=== PATIENT | female | born 1975 | race Caucasian/White ===

== ENCOUNTER 2020-03-15 08:09 | Emergency (ER) | payer OTHER ==
[2020-03-15] MEDS ORDERED: Acetaminophen 500 MG Tab PO ONE (08:41)
[2020-03-15] MEDS ORDERED: Bupivacaine 0.5% 30 ML SDV INFILT ONE (08:41)
[2020-03-15] MEDS ORDERED: Ibuprofen 400 MG Tab PO ONE (08:41)
[2020-03-15] MEDS ORDERED: Bupivacaine 0.5% 10 ML SDV INJECT ONE (08:42)
[2020-03-15] MEDS ORDERED: Bupivacaine 0.5% 10 ML SDV ONE (08:45)
--- NOTE | 2020-03-15 08:52 | EDM.PDOC ---
ED HPI GENERAL MEDICAL PROBLEM - General Chief Complaint: Laceration Stated Complaint: CUT LEFT HAND WITH KNIFE Time Seen by Provider: 03/15/20 08:11 Source of Information: Reports: Patient History Limitations: Reports: No Limitations - History of Present Illness INITIAL COMMENTS - FREE TEXT/NARRATIVE: 44-year-old female with no past medical history presenting with a finger lace ration. Proximally 30 minutes ago, the patient was using a kitchen knife when she sustained a laceration to the left fifth finger. Denies any other injuries. There was no rust on the knife, she cleaned it last night. Tetanus immunization up-to-date as of 2 years ago. Denies any other injuries or complaints including numbness to the affected digit. Past medical history: Reviewed, no additional pertinent history. Surgical history: Reviewed in system, no additional pertinent history. Social history: Reviewed in system, no additional pertinent history. Family history: Reviewed in system, no additional pertinent history. PHYSICAL EXAM Vital signs reviewed. Nursing notes reviewed. Constitutional: Awake, alert, non-distressed. Head: Normocephalic, atraumatic. Eyes: EOMI, conjunctiva normal, no discharge, no scleral icterus. Ears, Nose, Throat: External ears and nose normal, moist oral mucosa. Pulmonary: normal work of breathing, no accessory muscle use. Abdomen/GI: Soft, nontender, nondistended, no guarding or rigidity, no masses. Musculoskeletal: No deformities. Integumentary: Appropriate color for ethnicity, warm, dry, no pallor or jaundice, no rash. 2 cm linear laceration to the left fifth finger. Neurologic: Alert, answering questions appropriately, normal speech, no facial droop, moving all extremities well. SILT to left 5th finger. Psychiatric: Appropriate mood and affect, normal thought process. left 5th digit Pain Score (Numeric/FACES): 10 - Related Data Allergies Allergy/AdvReac Type Severity Reaction Status Date / Time amoxicillin Allergy Hallucinati Verified 08/07/20 08:30 ons morphine Allergy Vomiting Verified 03/15/20 08:30 paclitaxel [From Taxol] Allergy Hives Verified 03/15/20 08:30 Home Meds: Home Meds . [No Known Home Meds] 03/15/20 [History] Past Medical History HEENT History: Reports: None Cardiovascular History: Reports: None Respiratory History: Reports: None Gastrointestinal History: Reports: None Genitourinary History: Reports: None [employer] History: Reports: None Musculoskeletal History: Reports: Other (See Below) Neurological History: Reports: None Psychiatric History: Reports: None Endocrine/Metabolic History: Reports: None Hematologic History: Reports: None Immunologic History: Reports: None Oncologic (Cancer) History: Reports: None Dermatologic History: Reports: None - Infectious Disease History Infectious Disease History: Reports: Chicken Pox - Past Surgical History Head Surgeries/Procedures: Reports: None HEENT Surgical History: Reports: None Cardiovascular Surgical History: Reports: None Respiratory Surgical History: Reports: None GI Surgical History: Reports: None Female Surgical History: Reports: Hysterectomy Endocrine Surgical History: Reports: None Neurological Surgical History: Reports: None Musculoskeletal Surgical History: Reports: Other (See Below) Other Musculoskeletal Surgeries/Procedures:: ACL surgery Oncologic Surgical History: Reports: None Dermatological Surgical History: Reports: None Social & Family History - Family History Family Medical History: Noncontributory - Tobacco Use Smoking Status *Q: Never Smoker Second Hand Smoke Exposure: No - Caffeine Use Caffeine Use: Reports: None - Recreational Drug Use Recreational Drug Use: No ED ROS GENERAL - Review of Systems Review Of Systems: See Below ED EXAM, SKIN/RASH Exam: See Below ED SKIN PROCEDURES - Laceration/Wound Repair Left Lateral Digit - 5th (Baby) Appearance: Superficial Anesthetic Type: Digital Local Anesthesia - Bupivicaine (Marcaine): 0.5% Plain Local Anesthetic Volume: 2cc Skin Prep: Saline Exploration/Debridement/Repair: Wound Explored, In a Bloodless Field, No Foreign Material Found Closed with: Sutures Lac/Wound length In cm: 2 Suture Size: 4-0 # of Sutures: 9 Sterile Dressing Applied: None Tetanus Status Addressed: Yes Complications: No Course - Vital Signs Text/Narrative:: Tetanus up-to-date. Single laceration to the finger, repaired as detailed in the procedure note. Given Tylenol and Motrin for pain. No evidence of foreign body or infection. Stable to discharge home. Return to ED in 7 days for suture removal. Return precautions provided, all questions answered prior to discharge. Last Recorded V/S: Last Vital Signs Temp 35.4 C L 03/15/20 08:27 Pulse 101 H 03/15/20 08:27 Resp 17 03/15/20 08:27 BP 143/97 H 03/15/20 08:27 Pulse Ox 96 03/15/20 08:27 - Orders/Labs/Meds Orders: Active Orders 24 hr Category Date Time Status Procedure Tray at Bedside [RC] ASDIRECTED Care 03/15/20 08:41 Active Meds: Medications Discontinued Medications Generic Name Dose Route Start Last Admin Trade Name Freq PRN Reason Stop Dose Admin Acetaminophen 1,000 mg 03/15/20 08:41 03/15/20 08:47 Tylenol Extra Strength PO 03/15/20 08:42 1,000 mg ONETIME ONE Administration Bupivacaine HCl 10 ml 03/15/20 08:41 03/15/20 08:51 Marcaine 0.5% INFILT 03/15/20 08:42 Not Given ONETIME ONE Bupivacaine HCl 10 ml 03/15/20 08:42 03/15/20 08:49 Sensorcaine-Mpf 0.5% INJECT 03/15/20 08:43 10 ml ONETIME ONE Administration Bupivacaine HCl Confirm 03/15/20 08:45 03/15/20 08:51 Sensorcaine-Mpf 0.5% Administered 03/15/20 08:46 Not Given Dose 10 ml .ROUTE .STK-MED ONE Ibuprofen 400 mg 03/15/20 08:41 03/15/20 08:47 Motrin PO 03/15/20 08:42 400 mg ONETIME ONE Administration Departure - Departure Time of Disposition: 10:01 Disposition: Home, Self-Care 01 Condition: Good Clinical Impression: Laceration of left little finger Qualifiers: Encounter type: initial encounter Damage to nail status: without damage Foreign body presence: without foreign body Qualified Code(s): S61.217A - Laceration without foreign body of left little finger without damage to nail, initial e ncounter - Discharge Information *PRESCRIPTION DRUG MONITORING PROGRAM REVIEWED*: Not Applicable *COPY OF PRESCRIPTION DRUG MONITORING REPORT IN PATIENT JAMES: Not Applicable Instructions: Laceration Care, Adult, Sutured Wound Care Referrals: Emergency Room [Provider Group] - 1 Week (For suture removal) Forms: ED Department Discharge Additional Instructions: Thank you for choosing the [facility] emergency department in [place] for your medical needs today. It was a pleasure caring for you. Return in 7 days to have your sutures removed in the emergency department. Please return the emergency department immediately if your symptoms worsen or if you feel worse. The following information is given to patients seen in the emergency department who are being discharged. This information is to outline your options for follow-up care. We provide all patients seen in our emergency department with a follow-up referral. The need for follow-up, as well as the timing and circumstances, are variable depending upon the specifics of your emergency department visit. If you don't have a primary care physician on staff, we will provide you with a referral. We always advise you to contact your personal physician following an emergency department visit to inform them of the circumstance of the visit and for follow-up with them and/or the need for any referrals to a consulting specialist. The emergency department will also refer you to a specialist when appropriate. This referral assures that you have the opportunity for follow-up care with a specialist. All of these measure are taken in an effort to provide you with optimal care, which includes your follow-up. Under all circumstances we always encourage you to contact your private physician who remains a resource for coordinating your care. When calling for follow-up care, please make the office aware that this follow-up is from your recent emergency room visit. If for any reason you are refused follow-up, please contact the [facility] Emergency Department at and asked to speak to the emergency department charge nurse. If you do not have a primary care physician that is caring for you, you can contact these clinics below to set up an appointment to establish care: [facility] - [facility] [address] [place] [phone] [address] [address] Sepsis Event Note (ED) - Evaluation Sepsis Screening Result: No Definite Risk - Focused Exam Vital Signs: Vital Signs Temp Pulse Resp BP Pulse Ox 03/15/20 08:27 35.4 C L 101 H 17 143/97 H 96 - My Orders Last 24 Hours: My Active Orders 03/15/20 08:41 Procedure Tray at Bedside [RC] ASDIRECTED - Assessment/Plan Last 24 Hours: My Active Orders 03/15/20 08:41 Procedure Tray at Bedside [RC] ASDIRECTED
== END 2020-03-15 10:09 | disposition home or self-care (01) ==
LOC: MW.ED 08:09
DX: S61.217A Laceration without foreign body of left little finger without damage to nail, initial encounter (principal); Z88.1 Allergy status to other antibiotic agents; Z88.5 Allergy status to narcotic agent; W26.0XXA Contact with knife, initial encounter
CPT/HCPCS: 12001; 99282; A9270; J3490

== ENCOUNTER 2020-03-25 12:42 | Emergency (ER) | payer OTHER | END 2020-03-25 12:59 | disposition left against medical advice (07) | LOC: MW.ED 12:42 | DX: S61.217D Laceration without foreign body of left little finger without damage to nail, subsequent encounter (principal) | CPT/HCPCS: 99281 ==